=== PATIENT | male | born 1980 | race Caucasian/White ===

== ENCOUNTER 2020-04-24 16:34 | Emergency (ER) | payer BC, SELFPAY ==
[2020-04-24 16:40] VITALS: BP 157/106; PULSE 94; RESP 16; TEMP 36.8; O2SAT 99
--- NOTE | 2020-04-24 16:55 | ED.GENADULT ---
HPI - General Adult General Chief complaint: Extremity Injury, Lower Stated complaint: left foot painful/swollen Time Seen by Provider: 04/24/20 16:55 Source: patient and RN notes reviewed Mode of arrival: ambulatory Limitations: no limitations History of Present Illness HPI narrative: 39-year-old male presents with complaints of left foot pain and swelling for the past 7 days. Ibuprofen and Allopurinol without relief. Denies injury. History of Gout. Denies history of CHF, DVT, or PE. Hurts to bear weight. Pain radiates toes. No numbness, tingling, or loss of mobility. Exacerbating factor applying weight. Denies inability to bear weight. Denies drainage, discoloration, or suspect foreign body. Denies fever or chills. Denies chest pain and shortness of breath. Remains active. The patient reports he have not been diagnosed with COVID-19. The patient reports he is not waiting for the results of a COVID-19 lab test. The patient reports he do not have weakness or fatigue. The patient reports he do not have a new or worsening cough or shortness of breath. Denies chest pain. The patient reports he do not have any rhinorrhea, congestion, loss of taste, sore throat, nausea, vomiting, abdominal pain, and diarrhea. Tolerating po intake well. Denies recent traveling. Denies concerns for COVID-19 or exposures been home with limited outdoor exposure except for essential household needs, work, and return home. At this time, patient is not suspected of having COVID-19. Some parts of this dictation were generated by voice recognition software and may contain typographical and/or grammatical inaccuracies. Related Data Allergies Allergy/AdvReac Type Severity Reaction Status Date / Time No Known Allergies Allergy Verified 04/24/20 16:46 Review of Systems Review of Systems: Narrative: CONSTITUTIONAL: Denies fever, chills, sweats. EYES: Denies visual changes, redness, discharge. ENT: Denies rhinorrhea, congestion, sore throat, otalgia. CARDIOVASCULAR: Denies chest pain, palpitations, edema. RESPIRATORY: Denies dyspnea, wheezing, cough. GASTROINTESTINAL: Denies abdominal pain, nausea, vomiting, diarrhea. GENITOURINARY: Denies dysuria, hematuria, abnormal discharge. SKIN: Denies rash or itching. MUSCULOSKELETAL: Denies acute back pain or myalgia. Complains of pain and swelling to LT foot. Denies drainage. NEUROLOGIC: Denies numbness or focal weakness. PSYCHIATRIC: Denies anxiety or depression. All systems reviewed & are unremarkable except as noted in HPI and below PMFSH Past Medical History Medical History (Updated 04/25/20 @ 00:00 by Chris Barcenas) Anxiety Asthma Gout Surgical History Surgical History History of appendectomy Family History Family History (Updated 04/24/20 @ 17:06 by MARCEL Vu) Father Unknown family medical history Mother Alive and well Social History Social History (Updated 04/24/20 @ 17:14 by MARCEL Vu) Smoking status: Never smoker Tobacco type: cigarettes Second hand tobacco smoke exposure: No Alcohol intake: never Substance use: never Living arrangements: with family Occupation/Education: occupation Gender identity (if verbalized by the patient): Male Comments At time of signature, agree with nurse past medical, surgical, social, and family history. There is relevant patient's past medical history pertinent to the presenting complaint, no relevant family history pertinent to the presenting complaint. Exam Narrative: Exam Narrative: GENERAL: This is a well-nourished, well-developed patient, in no apparent distress. Ambulates with a limp favoring left lower extremity due to tenderness in LT foot. HEAD: normocephalic, atraumatic. EYES: PERRL. Sclera clear/white. Vision is grossly intact. CARDIOVASCULAR: Regular rate and rhythm without murmurs, gallops, or rubs. RESPIRATORY: C
[2020-04-24 17:09] VITALS: BP 148/100
== END 2020-04-24 17:14 | disposition home or self-care (01) ==
PROVIDERS: Emergency Provider Nurse Practitioner Family
DX: M10.9 Gout, unspecified (principal); J45.909 Unspecified asthma, uncomplicated
CPT/HCPCS: 99213; G0463

== ENCOUNTER 2021-12-06 11:12 | Emergency (ER) | payer OTHER, SELFPAY ==
[2021-12-06 11:17] VITALS: BP 124/88; PULSE 96; RESP 16; TEMP 36.5; O2SAT 97
--- NOTE | 2021-12-06 11:31 | ED.EAR ---
HPI - Ear Problem General Chief complaint: Ear Stated complaint: Left ear pain Time Seen by Provider: 12/06/21 11:21 Source: patient, family and RN notes reviewed History of Present Illness HPI Narrative: Patient is a 41-year-old male who presents the urgent care with complaints of left ear pain for the last 3 days. Patient states that he wears earplugs daily and has tried salt water and peroxide without much relief. Patient states he has no drainage but does have some decreased hearing. Denies any of any other upper respiratory complaints. No other acute complaints. No acute distress noted. Patient aware of the plan of care. Some parts of this dictation were generated by voice recognition software and may contain typographical and/or grammatical inaccuracies. Related Data Allergies Allergy/AdvReac Type Severity Reaction Status Date / Time No Known Allergies Allergy Verified 12/06/21 11:15 Review of Systems Review of Systems: CONSTITUTIONAL: Denies fever, chills, or sweats. EYES: Denies visual changes, redness, or discharge. ENT: Denies rhinorrhea, congestion, sore throat. Reports of left otalgia and decreased hearing without drainage CARDIOVASCULAR: Denies chest pain, palpitations, or edema. RESPIRATORY: Denies cough or dyspnea. GASTROINTESTINAL: Denies abdominal pain, nausea, vomiting, or diarrhea. GENITOURINARY: Denies dysuria or hematuria. SKIN: Denies rash or itching. MUSCULOSKELETAL: Denies back pain, joint pain, or myalgia. NEUROLOGIC: Denies headache, numbness, or weakness. All other systems reviewed are negative, except as documented in HPI. FORMERLY [facility] Past Medical History Medical History (Updated 12/06/21 @ 11:51 by MARCEL Tee) Anxiety Asthma Gout Surgical History Surgical History History of appendectomy Family History Family History (Updated 04/24/20 @ 17:06 by MARCEL Vu) Father Unknown family medical history Mother Alive and well Social History Social History (Updated 04/24/20 @ 17:14 by MARCEL Vu) Smoking status: Never smoker Tobacco type: cigarettes Second hand tobacco smoke exposure: No Alcohol intake: never Substance use: never Gender identity (if verbalized by the patient): Male Comments At the time of my signature, I reviewed and agree with the nursing past medical, surgical, social, and family history. There is no relevant family history pertinent to the patient complaint. Exam Narrative: GENERAL: This is a well-nourished, well-developed patient, in no apparent distress. HEAD: normocephalic, atraumatic. EYES: PERRL. Sclera clear/white. Vision is grossly intact. EARS: External ears normal, right auditory canal clear and without drainage, left auditory canal mildly edematous and erythemic without drainage, unable to visualize bilateral TMs due to cerumen impaction. NOSE: External nose normal with no obvious nasal discharge, nares without redness, no rhinorrhea. THROAT: Mucous membranes moist, posterior pharynx clear. Moderate postnasal drainage NECK: Neck supple, non-tender without lymphadenopathy CARDIOVASCULAR: Regular rate and rhythm without murmurs, gallops, or rubs. RESPIRATORY: Clear to auscultation. Breath sounds equal bilaterally. No wheezes, rales, or rhonchi. SKIN: warm, intact with no suspicious lesions or rash, good texture and turgor. NEURO: awake, alert, and oriented to person, place and time. There were no obvious focal neurologic abnormalities. EXTREMITIES: No clubbing, cyanosis, or edema. Course Course Level of Care: Express Care Visit Vital Signs Vital signs: Vital Signs Temperature 97.7 F 12/06/21 11:17 Pulse Rate 96 12/06/21 11:17 Respiratory Rate 16 12/06/21 11:17 Blood Pressure 124/88 12/06/21 11:17 Pulse Oximetry 97 12/06/21 11:17 Oxygen Delivery Room Air 12/06/21 11:17 Temperature 97.7 F 12/06/21 11:17 Pulse Rate
== END 2021-12-06 11:52 | disposition home or self-care (01) ==
PROVIDERS: Emergency Provider Nurse Practitioner Family
DX: H60.502 Unspecified acute noninfective otitis externa, left ear (principal); H61.23 Impacted cerumen, bilateral; J45.909 Unspecified asthma, uncomplicated; M10.9 Gout, unspecified
CPT/HCPCS: 69210; 99213; G0463

== ENCOUNTER 2022-09-15 11:45 | Emergency (ER) | payer OTHER, SELFPAY ==
[2022-09-15 11:50] VITALS: BP 138/97; PULSE 89; RESP 16; TEMP 36.6; O2SAT 98
--- NOTE | 2022-09-15 12:33 | ED.URI ---
HPI - URI/Sore Throat General Chief Complaint: Upper Respiratory Infection Stated Complaint: Chest Congestion/Shortness of Breath Time Seen by Provider: 09/15/22 12:30 Source: patient, RN notes reviewed and old records reviewed Mode of arrival: ambulatory Limitations: no limitations History of Present Illness HPI Narrative: 41-year-old male presents to Express Care with complaints of sinus pressure,drainage, chest congestion with cough, sore throat, and feels some dyspnea with exertion. Patient reports that he has noted some wheezing at night, reports no known fevers, hills or sweats, denies any body aches. patient states that he has some chest tightness at times rates it 3/10, states hard to take deep breath.Patient reports past history of asthma and bronchitis. MD elicited complaint: cough, sore throat, rhinorrhea, nasal congestion and sinus pain Pertinent past history: asthma and other (bronchitis) Onset (ago): day(s) (3) Pain scale (0-10): 3 Related Data Home Medications Medication Instructions Recorded Confirmed allopurinol 100 mg tablet 100 mg PO BID 09/15/22 09/15/22 Allergies Allergy/AdvReac Type Severity Reaction Status Date / Time No Known Allergies Allergy Verified 12/06/21 11:15 Review of Systems Review of Systems: CONSTITUTIONAL: Denies malaise, chills, sweats, or fever. EYES: Denies visual changes, redness, or discharge. ENT: Reports rhinorrhea, congestion, sinus pain, no otalgia positive for sore throat. CARDIOVASCULAR: Denies chest pain, palpitations, or edema. RESPIRATORY: Reports cough.?Some dyspnea with exertion GASTROINTESTINAL: Denies abdominal pain, nausea, vomiting, diarrhea SKIN: Denies rash or itching. MUSCULOSKELETAL: Denies myalgia. NEUROLOGIC: Denies headache. All systems reviewed & are unremarkable except as noted in HPI and below PMFSH Past Medical History Medical History (Updated 09/16/22 @ 00:00 by Chris Barcenas) Anxiety Asthma Gout Surgical History Surgical History History of appendectomy Family History Family History (Updated 04/24/20 @ 17:06 by MARCEL Vu) Father Unknown family medical history Mother Alive and well Social History Social History (Updated 04/24/20 @ 17:14 by YOHANA Vu Smoking status: Never smoker Tobacco type: cigarettes Second hand tobacco smoke exposure: No Alcohol intake: never Substance use: never Living arrangements: with family Occupation/Education: occupation Gender identity (if verbalized by the patient): Male Comments At time of signature, agree with nursing past medical, surgical, social and family history. There is no relevant family history pertinent to the presenting complaint Exam Narrative: no GENERAL: Well-appearing, well-nourished, and in no acute distress. HEAD: Normocephalic EYES: PERRLA, conjunctivae clear ENT: Nares clear, turbinates edematous and erythematous, yellow discharge. Mucous membranes moist. TM pearly pena with dull light reflex bilaterally; no tragal tenderness. Oropharynx erythematous without lesions. Tonsils not enlarged and without exudate, no drooling, no hoarseness, no trismus, uvula midline.post nasal drainage NECK: Supple. No lymphadenopathy CHEST: faint wheezes on auscultation, breath sounds equal. faint wheezing,no rhonchi, rales, or stridor. No respiratory distress, speaks in full sentences.dry cough, SAO2 98% on room air HEART: Regular rate and rhythm. No murmur heard. SKIN: Warm, dry, no rash. NEURO: Alert and oriented x3. PSYCH: Normal mood and affect Course Course Emergency Course: Patient is aware of diagnosis, understands and agrees to treatment plan.? Anticipatory guidance given.? Patient agrees to follow-up as directed and is aware of reasons to seek care at the emergency department. Portions of this record may have been created with voice recognitio
== END 2022-09-15 12:55 | disposition home or self-care (01) ==
PROVIDERS: Emergency Provider Registered Nurse; PCP Family Medicine
DX: J40 Bronchitis, not specified as acute or chronic (principal); J45.909 Unspecified asthma, uncomplicated; M10.9 Gout, unspecified
CPT/HCPCS: 99213; G0463

== ENCOUNTER 2022-09-24 16:27 | Emergency (ER) | payer OTHER, SELFPAY ==
[2022-09-24 16:35] VITALS: BP 142/95; PULSE 94; RESP 18; TEMP 36.6; O2SAT 98
--- NOTE | 2022-09-24 16:36 | ED.SKABFB ---
HPI - Skin/Abscess/Foreign Bdy General Chief complaint: Skin/Abscess/Foreign Body Stated complaint: blisters and sore back Time Seen by Provider: 09/24/22 16:36 Source: patient Mode of arrival: ambulatory Limitations: no limitations History of Present Illness HPI narrative: 41-year-old male presented for complaint of painful rash to the left flank area for the last 2 days. States he felt burning sensation and noticed red blistered area. He has not taken anything for pain. Denies active drainage. Denies any shortness of breath, wheezing, nausea vomiting, fevers or chills. Related Data Home Medications Medication Instructions Recorded Confirmed allopurinol 100 mg tablet 100 mg PO BID 09/15/22 09/24/22 Allergies Allergy/AdvReac Type Severity Reaction Status Date / Time No Known Allergies Allergy Verified 09/24/22 16:37 Review of Systems Review of Systems: CONSTITUTIONAL: Denies body aches, fever, chills, or sweats. EYES: Denies visual changes, redness, or discharge. ENT: Denies rhinorrhea, congestion CARDIOVASCULAR: Denies chest pain, palpitations, or edema. RESPIRATORY: Denies cough or dyspnea. GASTROINTESTINAL: Denies abdominal pain, nausea, vomiting, or diarrhea. SKIN: per HPI MUSCULOSKELETAL: Denies back pain, joint pain, or myalgia. NEUROLOGIC: Denies headache, numbness, tingling, or weakness. [facility] Past Medical History Medical History Anxiety Asthma Gout Surgical History Surgical History History of appendectomy Family History Family History Father Unknown family medical history Mother Alive and well Social History Social History Smoking status: Never smoker Tobacco type: cigarettes Second hand tobacco smoke exposure: No Alcohol intake: never Substance use: never Living arrangements: with family Occupation/Education: occupation Gender identity (if verbalized by the patient): Male Comments At time of signature, I have reviewed and agree with nursing past medical, surgical, social and family history unless otherwise noted. Please see nursing chart for further information. There is no relevant family history pertinent to the presenting complaint Exam Narrative: GENERAL: Well-appearing HEAD: Normocephalic, atraumatic. EYES: conjunctivae clear, and EOMI. ENT: Mucous membranes moist. Oropharynx without edema, erythema or lesions. NECK: Supple. No lymphadenopathy CHEST: Clear to auscultation. HEART: Regular rate and rhythm. SKIN: Warm, dry. Tender erythematous blistered patches to left flank approx 5cm diameter c/w zoster. No active drainage. NEURO: Alert and oriented x3. Course Course Emergency Course: Patient is aware of diagnosis, understands and agrees to treatment plan. Anticipatory guidance given. Patient agrees to follow-up as directed and is aware of reasons to seek care at the emergency department. Portions of this record may have been created with voice recognition software Level of Care: Express Care Visit Vital Signs Vital signs: Vital Signs Temperature 97.8 F 09/24/22 16:35 Pulse Rate 94 09/24/22 16:35 Respiratory Rate 18 09/24/22 16:35 Blood Pressure 142/95 H 09/24/22 16:35 Pulse Oximetry 98 09/24/22 16:35 Oxygen Delivery Room Air 09/24/22 16:35 Temperature 97.8 F 09/24/22 16:35 Pulse Rate 94 09/24/22 16:35 Respiratory Rate 18 09/24/22 16:35 Blood Pressure 142/95 H 09/24/22 16:35 Pulse Oximetry 98 09/24/22 16:35 Oxygen Delivery Room Air 09/24/22 16:35 Reviewed MDM - Skin/Abscess/Foreign Bdy MDM Narrative Medical decision making narrative: Discussed physical exam findings with patient and reviewed Rx. Advised supportive measures and signs/symptoms to go to the
[2022-09-24 16:37] VITALS: BP 142/95; PULSE 94; RESP 18; TEMP 36.6; O2SAT 98
== END 2022-09-24 16:43 | disposition home or self-care (01) ==
PROVIDERS: Emergency Provider Nurse Practitioner Family
DX: B02.9 Zoster without complications (principal)
CPT/HCPCS: 99213; G0463

== ENCOUNTER 2024-02-05 12:13 | Emergency (ER) | payer OTHER, SELFPAY ==
[2024-02-05 12:21] VITALS: BP 148/91; PULSE 106; RESP 20; TEMP 37.1; O2SAT 97
--- NOTE | 2024-02-05 13:31 | ED.GENADULT ---
HPI - General Adult General Chief complaint: Upper Respiratory Infection Stated complaint: Congestion/Cough Source: patient Mode of arrival: ambulatory Limitations: no limitations History of Present Illness HPI narrative: Patient presents for evaluation of sick symptoms for last 2 days. Symptoms include fatigue, fever, chills, sinus congestion, cough, sore throat. No nausea, vomiting, diarrhea. He is not taking medication to assist with the symptoms. He does not smoke. No recent sick contacts to his knowledge. Related Data Home Medications Medication Instructions Recorded Confirmed allopurinol 100 mg tablet 100 mg PO BID 09/15/22 09/24/22 Allergies Allergy/AdvReac Type Severity Reaction Status Date / Time No Known Allergies Allergy Verified 09/24/22 16:37 Review of Systems Review of Systems: CONSTITUTIONAL: Reports fatigue, fever and chills. EYES: Denies visual changes, redness, or discharge. ENT: Reports sinus congestion and sore CARDIOVASCULAR: Denies chest pain, palpitations, or edema. RESPIRATORY: Reports cough. Denies shortness of GASTROINTESTINAL: Denies abdominal pain, nausea, vomiting, or diarrhea. GENITOURINARY: Denies dysuria or hematuria. SKIN: Denies rash or itching. MUSCULOSKELETAL: Denies back pain, joint pain, or myalgia. NEUROLOGIC: Denies headache, numbness, dizziness, or weakness. PSYCHIATRIC: Denies anxiety or depression. [facility]LY [facility] Past Medical History Medical History Anxiety Asthma Gout Surgical History Surgical History History of appendectomy Family History Family History Father Unknown family medical history Mother Alive and well Social History Social History Smoking status: Never smoker Tobacco type: cigarettes Second hand tobacco smoke exposure: No Alcohol intake: never Substance use: never Living arrangements: with family Occupation/Education: occupation Gender identity (if verbalized by the patient): Male Exam Narrative: GENERAL: Well-appearing, well-nourished, and in no acute distress. HEAD: Normocephalic, atraumatic. EYES: PERRLA and EOMI. ENT: Nares clear, no rhinorrhea or epistaxis. Mucous membranes moist. Oropharynx without tonsillar hypertrophy exudate or other lesions. Bilateral TMs pearly pena nonbulging NECK: Supple. No adenopathy or masses. No carotid bruits or JVD CHEST: Clear to auscultation. No respiratory distress. No wheezes rales or rhonchi HEART: Regular rate and rhythm. No murmur heard. Normal peripheral pulses. ABDOMEN: Soft, nontender, nondistended, normal active bowel sounds. EXTREMITIES: Normal range of motion. No edema. SKIN: Warm, dry, no rash. NEURO: No focal deficits. Alert and oriented x3. PSYCH: Normal mood and affect. Course Course Emergency Course: This is a 43-year-old male who presented for evaluation of sick symptoms. Influenza and strep were negative. COVID positive. Advised on supportive care measures. Increase hydration. [id number] agents for symptom management. Follow up with primary provider. Go to the ER for worsening symptoms. Patient in agreement with plan of care Level of Care: Express Care Visit Vital Signs Vital signs: Vital Signs Temperature 37.1 C 02/05/24 12:21 Pulse Rate 106 H 02/05/24 12:21 Respiratory Rate 20 02/05/24 12:21 Blood Pressure 148/91 H 02/05/24 12:21 Pulse Oximetry 97 02/05/24 12:21 Temperature 37.1 C 02/05/24 12:21 Pulse Rate 106 H 02/05/24 12:21 Respiratory Rate 20 02/05/24 12:21 Blood Pressure 148/91 H 02/05/24 12:21 Pulse Oximetry 97 02/05/24 12:21 Medical Decision Making Vital Signs Vital Signs: Vital Signs Temperature 37.1 C 02/05/24 12:21 Pulse Rate 106 H
[2024-02-05 13:40] LABS: EDINFLUASCREEN Negative; EDINFLUBSCREEN Negative; EDSTREPNEGPOS1 Presumptive Negative
== END 2024-02-05 13:44 | disposition home or self-care (01) ==
PROVIDERS: Emergency Provider Nurse Practitioner; PCP Family Medicine
DX: U07.1 COVID-19 (principal); J45.909 Unspecified asthma, uncomplicated; M10.9 Gout, unspecified
CPT/HCPCS: 87081; 87426; 87804; 87880; 99213; G0463